=== PATIENT | male | born 1995 | race Two or more races ===

== ENCOUNTER 2016-12-09 21:16 | Emergency (ER) | payer MEDICAID ==
[2016-12-09 21:35] VITALS: RESP 16; TEMP 98.8; O2SAT 96
--- NOTE | 2016-12-09 22:43 | EDPHY ---
H & P Stated Complaint: L GROIN PAIN AND SWELLING Time Seen by Provider: 12/09/16 22:32 HPI/ROS: HPI The patient presents with left groin pain which has been present for the last 1 day, it is achy, moderate in severity, worse with standing, radiates to his left testicle. He has no prior history of similar. He denies any trauma. He denies any fever. He has no dysuria, urgency, hesitancy.. REVIEW OF SYSTEMS Constitutional: No fever, no chills. Eyes: No discharge. ENT: No sore throat. Cardiovascular: No chest pain, no palpitations. Respiratory: No cough, no shortness of breath. Gastrointestinal: No abdominal pain, no vomiting. Genitourinary: No hematuria. Musculoskeletal: No back pain. Skin: No rashes. Neurological: No headache. 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 PHYSICAL General Appearance: Alert, no distress Eyes: Pupils equal and round no pallor or injection ENT, Mouth: Mucous membranes moist Respiratory: There are no retractions, lungs are clear to auscultation Cardiovascular: Regular rate and rhythm Gastrointestinal: Abdomen is soft and non-tender, no masses, bowel sounds normal : Small left-sided inguinal hernia which is easily reducible Neurological: A&O, moves all extremities Skin: Warm and dry, no rashes Musculoskeletal: Neck is supple non tender Extremities: symmetrical, full range of motion Psychiatric: Patient is oriented X 3, there is no agitation Source: Patient Exam Limitations: No limitations - Personal History Current Tetanus/Diphtheria Vaccine: Yes Current Tetanus Diphtheria and Acellular Pertussis (TDAP): Yes - Medical/Surgical History Hx Asthma: No Hx Chronic Respiratory Disease: No Hx Diabetes: No Hx Cardiac Disease: No Hx Renal Disease: No Hx Cirrhosis: No Hx Alcoholism: No Hx HIV/AIDS: No Hx Splenectomy or Spleen Trauma: No Other PMH: medical ear infection. srugery, blood clot at 8 y/o removal from right side of head - Social History Smoking Status: Never smoked Constitutional: Initial Vital Signs Temperature (C) 37.1 C 12/09/16 21:20 Heart Rate 69 12/09/16 21:20 Respiratory Rate 16 12/09/16 21:20 Blood Pressure 125/78 H 12/09/16 21:20 O2 Sat (%) 96 12/09/16 21:20 O2 Delivery Mode Room Air Allergies/Adverse Reactions: Penicillins Allergy (Verified 12/09/16 21:35) Home Medications: Medication Instructions Recorded NK [No Known Home Meds] 10/04/14 Medical Decision Making Differential Diagnosis: This is a 21-year-old male with right groin pain for the last 1 day. Differential diagnosis includes inguinal hernia, incarcerated hernia, testicular torsion, inguinal lymphadenopathy. Based on my physical exam, the patient has a easily reducible small left-sided inguinal hernia which I feel is responsible for his pain. I have discussed supportive measures with him. I will refer him to General surgery for further evaluation. We have discussed return precautions. Departure - Departure Disposition: Home, Routine, Self-Care Clinical Impression: Left inguinal hernia Condition: Good Instructions: Inguinal Hernia (ED) Additional Instructions: You can use ice packs in the area for pain. You can also take ibuprofen 400 mg every 6 hours as needed for pain. Please follow-up with the surgeon. Referrals: [facility] [Other] - As per Instructions Maverick Villareal MD [Medical Doctor] - As per Instructions
[2016-12-10 00:23] VITALS: BP 127/67; PULSE 75
== END 2016-12-09 22:59 | disposition home or self-care (01) ==
DX: K40.90 Unilateral inguinal hernia, without obstruction or gangrene, not specified as recurrent (principal)

== ENCOUNTER 2017-09-30 21:02 | Emergency (ER) | payer MEDICAID ==
[2017-09-30] MEDS ORDERED: AZITHROMYCIN 250 MG TAB PO ONE ×2 (21:20→21:31)
--- NOTE | 2017-09-30 21:20 | EDPHY ---
H & P Stated Complaint: LEFT EARACHE Time Seen by Provider: 09/30/17 21:11 HPI/ROS: Chief complaint: Left ear pain History of present illness: This is a 22-year-old male who presents to the emergency department for evaluation of left ear pain. Reports the onset of symptoms over the last 3-4 days. They have been progressively worsening. He denies precipitating factors. He denies alleviating factors. He denies other associated signs or symptoms including no fevers, no cold symptoms, no hearing loss, no tinnitus, no headache no dizziness. - Personal History Current Tetanus/Diphtheria Vaccine: Unsure Current Tetanus Diphtheria and Acellular Pertussis (TDAP): Unsure - Medical/Surgical History Hx Asthma: No Hx Chronic Respiratory Disease: No Hx Diabetes: No Hx Cardiac Disease: No Hx Renal Disease: No Hx Cirrhosis: No Hx Alcoholism: No Hx HIV/AIDS: No Hx Splenectomy or Spleen Trauma: No Other PMH: medical ear infection. srugery, blood clot at 8 y/o removal from right side of head - Social History Smoking Status: Never smoked - Physical Exam Exam: General Appearance: Alert and no distress. Eyes: Pupils equal and round no injection. ENT: Left tympanic membrane is mildly erythematous, no evidence of perforation , no discharge. Right tympanic membrane is clear. The external auditory canals , external ear and surrounding soft tissue including over the mastoids are unremarkable. Nasopharynx is not injected. There is no rhinorrhea. Oropharynx is not injected. There is no edema. There is no exudate. There is no asymmetry. The uvula is midline. No elevation of the tongue. There is no hoarseness, no drooling, no trismus, no stridor. Respiratory: Chest is non tender, lungs are clear to auscultation. Cardiac: regular rate and rhythm Musculoskeletal: Neck is supple and non tender. Extremities have full range of motion and are non tender. Skin: No rashes or lesions. Neurological: Alert and oriented x4. No meningismus. Constitutional: Initial Vital Signs Temperature (C) 36.3 C 09/30/17 21:07 Heart Rate 90 09/30/17 21:07 Respiratory Rate 16 09/30/17 21:07 O2 Sat (%) 96 09/30/17 21:07 O2 Delivery Mode Room Air Allergies/Adverse Reactions: Penicillins Allergy (Verified 12/09/16 21:35) Home Medications: Medication Instructions Recorded Azithromycin 250 mg PO DAILY 4 Days tablet 09/30/17 Medical Decision Making ED Course/Re-evaluation: Patient seen under the supervision of my secondary supervising physician Dr. Albertina Lee. Patient presents to the emergency department for left ear pain. Does appear to be a developing a mild left otitis media. He is allergic to penicillins. I will treat him with azithromycin. Home care is discussed. He is to follow up with the primary care doctor for recheck. Return precautions are given. Differential Diagnosis: Included but not limited to otitis media, perforated tympanic membrane, otitis externa, mastoiditis - Data Points Medications Given: Discontinued Medications Azithromycin (Zithromax) 500 mg PO EDNOW ONE PRN Reason: Protocol Stop: 09/30/17 21:21 Last Admin: 09/30/17 21:30 Dose: 500 mg Departure - Departure Disposition: Home, Routine, Self-Care Clinical Impression: Otitis media Qualifiers: Otitis media type: unspecified Chronicity: acute Qualified Code(s): H66.90 - Otitis media, unspecified, unspecified ear Condition: Good Instructions: Ear Infection (ED) Additional Instructions: Follow-up with a primary care doctor next week for recheck Use ibuprofen 600 mg 3 times a day for the next 2-3 days for recheck If symptoms worsen or new symptoms develop return to the emergency room for recheck Referrals: NONE *PRIMARY CARE P,. [Primary Care Provider] - As per Instructions [facility],. [Clinic] - As per Instructions Prescriptions: Azithromycin 250 mg PO DAILY 4 Days tablet
== END 2017-09-30 21:33 | disposition home or self-care (01) ==
DX: H66.92 Otitis media, unspecified, left ear (principal)

== ENCOUNTER 2018-10-27 21:54 | Emergency (ER) | payer MEDICAID ==
[2018-10-27] MEDS ORDERED: METOCLOPRAMIDE 10 MG/2 ML VIAL IVP ONE (22:27)
[2018-10-27] MEDS ORDERED: NS 1,000 ML IV ONE (22:27)
[2018-10-27] MEDS ORDERED: DEXAMETHASONE 10 MG/ML VIAL IVP ONE (22:27)
--- NOTE | 2018-10-27 22:27 | EDPHY ---
H & P Stated Complaint: migraine since 1, nausea Time Seen by Provider: 10/27/18 22:23 HPI/ROS: HPI: This is a 23-year-old male who presents with Chief Complaint: Headache Location: Generalized but worse over the right mormonism Quality: Constant, global pain Duration: Since 12:30 a.m. Signs and Symptoms: no fever, + nausea, no vomiting, + photophobia, no noise sensitivity, no neck stiffness, no ear pain, no tinnitus, no nasal congestion, no sinus pressure, no weakness, no radiation, no aura, no vision changes, neck stiffness, no dizziness Timing: Worse since this evening around 6:00 p.m. 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 Took 2 Tylenol without relief of pain. He arrived home this evening around 6:00 p.m. Took ibuprofen and went to take a nap. The headache continued and is "the worst it has been in several years." at bedside reports last headache like this occurred in 2014. They are very frustrated as he has a history of a blood clot removed on the right side of his head when he was 8 years old and no providers will "scan his head to make sure everything is okay." He does endorse nausea but no vomiting, + photophobia. History migraine headaches. Does not take any blood thinners. Modifying Factors: See above Comment: ROS: A comprehensive 10 system review of systems is otherwise negative aside from elements mentioned in the history of present illness. MEDICAL/SURGICAL/SOCIAL HISTORY: Medical history: ear infection Surgical history: Blood clot removed when 8 years old from right side of head, herniorrhaphy Social history: . 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 Family history noncontributory. Never smoked. CONSTITUTIONAL: Toxic appearing, polite and cooperative young adult male, and mother at bedside, awake and alert, no obvious distress HEENT: Atraumatic and normocephalic, PERRL, EOMI. Nares patent; no rhinorrhea; no nasal mucosal edema. Tympanic membranes clear. Oropharynx clear, no exudate and moist pink mucosa. Airway patent. No lymphadenopathy. No meningismus. Cardiovascular: Normal S1/S2, regular rate, regular rhythm, without murmur rub or gallop. PULMONARY/CHEST: Symmetrical and nontender. Clear to auscultation bilaterally. Good air movement. No accessory muscle usage. ABDOMEN: Soft, nondistended, nontender, no rebound, no guarding, no peritoneal signs, no masses or organomegaly. No CVAT. EXTREMITIES: 2/2 pulses, strength 5/5, no deformities, no clubbing, no cyanosis or edema. NEUROLOGICAL: no focal neuro deficits. GCS 15. Nerves 2 through 12 grossly intact. Normal Romberg testing. Negative pronator drift. SKIN: Warm and dry, no erythema. no rash. Good capillary refill. Source: Patient Exam Limitations: No limitations - Personal History Current Tetanus/Diphtheria Vaccine: Unsure - Medical/Surgical History Hx Asthma: No Hx Chronic Respiratory Disease: No Hx Diabetes: No Hx Cardiac Disease: No Hx Renal Disease: No Hx Cirrhosis: No Hx Alcoholism: No Hx HIV/AIDS: No Hx Splenectomy or Spleen Trauma: No Other PMH: medical ear infection. surgery, blood clot at 8 y/o removal from right side of head, hernia sx, - Social History Smoking Status: Never smoked Constitutional: Initial Vital Signs Temperature (C) 36.8 C 10/27/18 21:55 Heart Rate 79 10/27/18 21:55 Respiratory Rate 18 10/27/18 21:55 Blood Pressure 128/94 H 10/27/18 21:55 O2 Sat (%) 98 10/27/18 21:55 O2 Delivery Mode Room Air Allergies/Adverse Reactions: Penicillins Allergy (Verified 10/27/18 21:59) Home Medications: Medication Instructions Recorded NK [No Known Home Meds] 10/27/18 Medical Decision Making - Diagnostics Imaging Results: Imaging Impressions Head CT 10/27/18 22:27 Impression: Stable head CT remains within normal limits. Results called to Winter Dela Cruz at 10:45 PM General information for patients regarding this examination can be found at [email or web address]. If you have questions or comments about this report, please contact me at [phone] (hospital) or [phone] (cell). ED Course/Re-evaluation: Vital signs reviewed and stable upon arrival. Due to history of blood clot as a child and headache "the worse is been in several years", head CT scan ordered IV access, laboratory studies, medications ordered Given 1 L normal saline, IV Decadron 10 mg, IV Reglan, IV Benadryl 2255: Called by radiologist, Dr. Hinds, who reports head CT scan shows no acute intracranial process does show remote right temporal craniotomy changes. 2309: Laboratory studies reviewed. WBC 11 K with no left shift, no anemia, no platelet dysfunction, glucose 109, electrolyte imbalance, no acute kidney injury 0000: Reassessed patient. Sleeping soundly. Patient reports complete relief of headache. Advised supportive care and [facility] This patient was seen under the supervision of my secondary supervising physician. I evaluated and cared for this patient with attending. Differential Diagnosis: Headache including but not limited to subarachnoid hemorrhage, migraine headache , tension headache and infectious causes such as meningitis, pharyngitis and sinusitis. - Data Points Laboratory Results: Laboratory Results 10/27/18 22:42 10/27/18 22:42 10/27/18 10/27/18 22:42 22:42 WBC 10.25 10^3/uL H 10^3/uL (3.80-9.50) RBC 5.51 10^6/uL 10^6/uL (4.40-6.38) Hgb 15.9 g/dL g/dL (13.7-17.5) Hct 46.3 % % (40.0-51.0) MCV 84.0 fL fL (81.5-99.8) MCH 28.9 pg pg (27.9-34.1) MCHC 34.3 g/dL g/dL (32.4-36.7) RDW 12.5 % % (11.5-15.2) Plt Count 276 10^3/uL 10^3/uL (150-400) MPV 8.5 fL L fL (8.7-11.7) Neut % (Auto) 63.6 % % (39.3-74.2) Lymph % (Auto) 25.6 % % (15.0-45.0) Wolfe % (Auto) 9.0 % % (4.5-13.0) Eos % (Auto) 1.3 % % (0.6-7.6) Baso % (Auto) 0.2 % L % (0.3-1.7) Nucleat RBC Rel Count 0.0 % % (0.0-0.2) Absolute Neuts (auto) 6.53 10^3/uL H 10^3/uL (1.70-6.50) Absolute Lymphs (auto) 2.62 10^3/uL 10^3/uL (1.00-3.00) Absolute Monos (auto) 0.92 10^3/uL H 10^3/uL (0.30-0.80) Absolute Eos (auto) 0.13 10^3/uL 10^3/uL (0.03-0.40) Absolute Basos (auto) 0.02 10^3/uL 10^3/uL (0.02-0.10) Absolute Nucleated RBC 0.00 10^3/uL 10^3/uL (0-0.01) Immature Gran % 0.3 % % (0.0-1.1) Immature Gran # 0.03 10^3/uL 10^3/uL (0.00-0.10) Sodium 136 mEq/L mEq/L (135-145) Potassium 4.2 mEq/L mEq/L (3.5-5.2) Chloride 102 mEq/L mEq/L (97-110) Carbon Dioxide 22 mEq/l mEq/l (22-31) Anion Gap 12 mEq/L mEq/L (6-14) BUN 17 mg/dL mg/dL (7-23) Creatinine 0.7 mg/dL mg/dL (0.7-1.3) Estimated GFR > 60 Glucose 109 mg/dL H mg/dL (70-100) Calcium 9.8 mg/dL mg/dL (8.5-10.4) Medications Given: Discontinued Medications Dexamethasone (Decadron Injection) 10 mg IVP EDNOW ONE Stop: 10/27/18 22:28 Last Admin: 10/27/18 22:50 Dose: 10 mg Diphenhydramine HCl (Benadryl Injection) 50 mg IVP EDNOW ONE Stop: 10/27/18 22:28 Last Admin: 10/27/18 22:53 Dose: 50 mg Sodium Chloride (Ns) 1,000 mls @ 0 mls/hr IV ONCE ONE; Wide Open PRN Reason: Protocol Stop: 10/27/18 22:28 Last Admin: 10/27/18 22:50 Dose: 1,000 mls Metoclopramide HCl (Reglan Injection) 10 mg IVP EDNOW ONE Stop: 10/27/18 22:28 Last Admin: 10/27/18 22:55 Dose: 10 mg Departure - Departure Disposition: Home, Routine, Self-Care Clinical Impression: Tension-type headache, not intractable Qualifiers: Headache chronicity pattern: acute headache Qualified Code(s): G44.209 - Tension-type headache, unspecified, not intractable Condition: Good Instructions: Tension Headache (ED) Additional Instructions: Consume a minimum of 8-10 glasses of water or electrolyte fluid replacement drinks that include Gatorade, Powerade, Pedialyte. Rest as much as possible until you are feeling better. Please avoid stress and practice relaxation techniques. Take Tylenol 650 mg every 4 hours and/or Ibuprofen 600 mg every 8 hours with food as needed for pain. Apply moist heat for 30 minutes at a time; 2-3 times per day for the next 1-2 days. Follow up with [facility] as needed. Return to the ER immediately if you have progressive headaches, neurologic deficits, gait abnormality, visual disturbance, slurred speech, or any other symptom that concerns you. Referrals: [facility],. [Clinic] - As per Instructions Stand Alone Forms: Work Excuse
[2018-10-27 22:53] LABS: PLATELET COUNT 276 10^3/uL (150-400)
[2018-10-27 23:56] VITALS: BP 106/71
== END 2018-10-28 00:02 | disposition home or self-care (01) ==
DX: G44.209 Tension-type headache, unspecified, not intractable (principal); E86.9 Volume depletion, unspecified
CPT/HCPCS: 96374; J1100; J1200; J2765